=== PATIENT | male | born 1970 | race Caucasian/White ===

== ENCOUNTER → 2016-05-04 | Outpatient (CLI) | payer OTHER ==
--- NOTE | 2016-05-05 12:04 | REP ---
NUCLEAR THYROID UPTAKE AND SCAN: Following the oral administration of 366 microcuries Iodine 123 as sodium iodine, thyroid uptake is measured. The 2-hour uptake is 37.8%, which is above the normal range of 6 to 12%. The 24-hour uptake is 77.4%, which is above the normal range of 35 to 35%. Thyroid scan shows both lobes to be enlarged, slightly greater than 7 cm in length. No focal hot or cold nodule is seen. There are diffuse increased uptake bilaterally. IMPRESSION: Scintigraphic findings compatible with Graves disease as discussed above. Signed by Adrian Sawyer MD 05/05/2016 12:44 P
== END ==
LOC: M RAD 10:19
PROVIDERS: ATTEND Physician Assistant Medical
DX: E05.00 Thyrotoxicosis with diffuse goiter without thyrotoxic crisis or storm (principal)

== ENCOUNTER → 2016-05-27 | Outpatient (CLI) | payer OTHER | LOC: M RAD 13:33 | PROVIDERS: ATTEND Internal Medicine Endocrinology, Diabetes & Metabolism | DX: E05.00 Thyrotoxicosis with diffuse goiter without thyrotoxic crisis or storm (principal) ==